=== PATIENT | female | born 1965 | race Caucasian/White ===

== ENCOUNTER → 2023-08-04 14:18 | Outpatient (REF) | payer BC, SELFPAY | LOC: HWWDC 14:18 | PROVIDERS: ATTENDING PHYSICIAN Obstetrics & Gynecology; FAMILY PHYSICIAN Family Medicine | DX: Z12.31 Encounter for screening mammogram for malignant neoplasm of breast (principal) | CPT/HCPCS: 77063; 77067 ==

== ENCOUNTER → 2023-09-27 15:04 | Outpatient (REF) | payer BC, SELFPAY | LOC: EMG 15:04 | PROVIDERS: ATTENDING PHYSICIAN Internal Medicine Rheumatology; FAMILY PHYSICIAN Family Medicine | DX: R20.0 Anesthesia of skin (principal) | CPT/HCPCS: 95886; 95911 ==

== ENCOUNTER → 2023-09-27 16:27 | Outpatient (REF) | payer BC, SELFPAY ==
[2023-09-27 17:19] LABS: Urine Albumin Negative (Neg - Trace); Urine Bilirubin Negative (Negative); Urine Character Clear (Clear); Urine Color Yellow; Urine Glucose Negative (Negative); Urine Ketone Negative (Negative); Urine Leukocyte 1+ (Negative); Urine Nitrite Negative (Negative); Urine Occult Blood Negative (Negative); Urine Specific Gravity 1.005 (<1.030); Urine Urobilinogen Negative (Neg - 1+)
[2023-09-27 17:30] LABS: Urine Red Blood Cell 0-2 /HPF (0-2)
[2023-09-27 17:31] LABS: Urine Bacteria Moderate (Negative)
[2023-09-27 17:36] LABS: Creatine Phosphokinase 93 U/L (30-135)
[2023-09-27 17:51] LABS: Protein/creatinine Ratio 0.2; Urine Protein 10 mg/dl
[2023-09-28 09:36] LABS: Glycohemoglobin (HgbA1c) 5.2 % (4.0-5.6)
[2023-09-28 23:48] LABS: Complement C3 107 mg/dl (88-165)
[2023-09-30 01:55] LABS: ANA, IgG Reflex to HEp-2 Detected (None Detected)
== END ==
LOC: REG 16:27
PROVIDERS: ATTENDING PHYSICIAN Internal Medicine Rheumatology; FAMILY PHYSICIAN Family Medicine
DX: M35.9 Systemic involvement of connective tissue, unspecified (principal); K11.7 Disturbances of salivary secretion; R20.0 Anesthesia of skin
CPT/HCPCS: 36415; 81003; 81015; 82550; 82570; 82784; 83036; 83521; 84155; 84156; 84165; 86038; 86160; 86334

== ENCOUNTER → 2024-08-16 15:15 | Outpatient (REF) | payer BC, SELFPAY | LOC: WDC 15:15 | PROVIDERS: ATTENDING PHYSICIAN Obstetrics & Gynecology; FAMILY PHYSICIAN Family Medicine | DX: Z12.31 Encounter for screening mammogram for malignant neoplasm of breast (principal) | CPT/HCPCS: 77063; 77067 ==